=== PATIENT | male | born 1995 | race Caucasian/White ===

== ENCOUNTER 2021-02-01 09:06 | Emergency (ER) | payer MEDICAID ==
[~2021-02-01] VITALS: Ht 175.3 cm; Wt 86.2 kg
[2021-02-01 09:17] VITALS: BP 100/72
--- NOTE | 2021-02-01 09:25 | NUR ---
lab at bedside.
--- NOTE | 2021-02-01 09:28 | NUR ---
25 Y/O M BIBA FOR [address] HOLD [address]ED BY PD. PD STATES THEY FOUND HIM ON THE FLOOR, HAS BEEN HOMELESS FOR 6 MONTHS, PT STATES NOW THAT HE IS SUICIDAL. ASKED PT PLAN FOR SUICIDE AND NUMBER OF ATTEMPTS. PT STATES "I HAVE TRIED EVERYTHING, I TRY ALL THE TIME, BUT I CANT SEEM TO ". PT NON COMPLIANT WITH MEDICATIONS. UPON INSPECTION, PT HAS SUNBURNS ALL OVER BODY, NO VISIBLE SELF HARM LACS ON BODY. PT IS RESTING COMFORTABLY IN A GOWN, BELONGINGS WITH SECURITY, ITEMS TAKEN OUT OF ROOM FOR SAFETY. PMH: BIPOLAR DISORDER ALLERGY: UNABLE TO OBTAIN MED: UNABLE TO OBTAIN
--- NOTE | 2021-02-01 09:30 | NUR ---
LEYDI AND PANCHITO SWABBED AND SENT WITH LAB.
[2021-02-01 09:35] LABS: BASOPHILS % (AUTO) 0.5 % (0.0-2.0); EOSINOPHILS % (AUTO) 0.4 % (0.0-4.0); HEMATOCRIT 40.5 % (36-52); HEMOGLOBIN 14.2 g/dL (12.0-18.0); LYMPHOCYTES # (AUTO) 2.5 K/uL (2.0-11.5); LYMPHOCYTES % (AUTO) 41.6 % (20.5-51.1); MEAN CORPUSCULAR HEMOGLOBIN 32 pg (27-31); MEAN CORPUSCULAR HGB CONC 35 g/dL (33-37); MEAN CORPUSCULAR VOLUME 90.7 fL (80-94); MONOCYTES # (AUTO) 0.6 K/uL (0.8-1.0); NEUTROPHILS # (AUTO) 2.8 K/uL (1.8-7.7); NEUTROPHILS % (AUTO) 47.5 % (42.2-75.2); PLATELET COUNT (AUTO) 243 K/uL (140-450); RED BLOOD CELL COUNT(AUTO) 4.47 MIL/uL (4.20-6.10); RED CELL DISTRIBUTION WIDTH 13.1 % (11.6-13.7)
[2021-02-01 09:52] LABS: ALBUMIN 4.2 g/dL (3.4-5.0); ANION GAP 12.3 (8-16); ASPARTATE AMINOTRANSFERASE 35 U/L (15-37); CARBON DIOXIDE 28.4 mmol/L (21-32); CHLORIDE 100 mmol/L (98-107); CREATININE 0.9 mg/dL (0.6-1.3); GFR ARICAN-AMERICAN 131 mL/min (>90); GLUCOSE 95 mg/dL (74-106); LIPASE 85 U/L (73-393); POTASSIUM 3.7 mmol/L (3.5-5.1); SODIUM SERUM 137 mmol/L (136-145); TOTAL BILIRUBIN 1.5 mg/dL (0.0-1.0); UREA NITROGEN, BLOOD 24 mg/dL (7-18)
[2021-02-01 09:58] LABS: SALICYLATE < 2.8 mg/dL (2.8-20.0)
[2021-02-01 09:59] LABS: ACETAMINOPHEN < 0.5 ug/ml (10-30)
[2021-02-01] MEDS ORDERED: SENN8.6T70 PO (10:17)
[2021-02-01] MEDS ORDERED: LEVO0.124 PO (10:17)
[2021-02-01] MEDS ORDERED: DIVA250T PO (10:17)
[2021-02-01] MEDS ORDERED: ZIPR60CA1 PO (10:17)
[2021-02-01] MEDS ORDERED: OMEP40EC24 PO (10:17)
[2021-02-01] MEDS ORDERED: METF500T PO (10:17)
[2021-02-01] MEDS ORDERED: AMMO12LO TP (10:17)
[2021-02-01] MEDS ORDERED: LACT1TAB35 PO (10:17)
[2021-02-01] MEDS ORDERED: LOSA100T1 PO (10:17)
[2021-02-01] MEDS ORDERED: BENZ-203 PO (10:17)
[2021-02-01] MEDS ORDERED: ASPI-1822 PO (10:17)
[2021-02-01] MEDS ORDERED: LORA10TA19 PO (10:17)
[2021-02-01] MEDS ORDERED: TRAZ-343 PO (10:17)
[2021-02-01] MEDS ORDERED: CITA40TA13 PO (10:17)
[2021-02-01] MEDS ORDERED: ATOR20TA40 PO (10:17)
[2021-02-01] MEDS ORDERED: AMLO10TA PO (10:17)
--- NOTE | 2021-02-01 10:19 | NUR ---
PT ALSO HAS HX OF HEP C
--- NOTE | 2021-02-01 10:23 | NUR ---
Telepsychiatry consultation ordered as requested by Dr. Flores.
--- NOTE | 2021-02-01 10:30 | NUR ---
PT UNABLE TO GIVE URINE AT THIS TIME
--- NOTE | 2021-02-01 11:05 | NUR ---
Report received from Tana ELAINE for continuity of care
--- NOTE | 2021-02-01 11:44 | NUR ---
Pt speaking with telepsych consult
--- NOTE | 2021-02-01 11:54 | NUR ---
Pt eating food provided at this time.
[2021-02-01] MEDS ORDERED: ACET-2619 PO (12:49)
[2021-02-01] MEDS ORDERED: OMEP20TC10 PO (12:49)
[2021-02-01] MEDS ORDERED: ONDA-24 PO (12:49)
--- NOTE | 2021-02-01 12:52 | NUR ---
URINE SAMPLE COLLECTED, SENT TO LAB. HANDED TO CPT JOSEPH
[2021-02-01 12:59] LABS: APPEARANCE,URINE HAZY (CLEAR); BILIRUBIN,URINE 1+ (NEGATIVE); BLOOD, URINE NEGATIVE (NEGATIVE); LEUKOCYTE ESTERASE ,URINE NEGATIVE (NEGATIVE); NITRITE, URINE NEGATIVE (NEGATIVE); UGLUCOSE NEGATIVE (NEGATIVE)
[2021-02-01 13:08] LABS: COLOR,URINE AMBER (YELLOW)
[2021-02-01 13:10] LABS: RBC,URINE 0-5 /HPF (0-5); WBC,URINE 0-5 /HPF (0-5)
[2021-02-01 13:11] LABS: URINE AMORPHOUS URATE 1+ /HPF (None Seen)
[2021-02-01 13:18] LABS: BARBITURATE, URINE NEGATIVE ng/ml (NEG <=200); BENZODIAZEPINE, URINE NEGATIVE ng/mL (NEG <=200); CANNABINOID, URINE POSITIVE ng/mL (NEG <=50); COCAINE, URINE NEGATIVE ng/mL (NEG <=300); OPIATE, URINE NEGATIVE ng/mL (NEG <=2000); PHENCYCLIDINE SCREEN,URINE NEGATIVE ng/mL (NEG <=25)
--- NOTE | 2021-02-01 14:30 | NUR ---
Patient has eyes closed, resting comfortably in bed. Vital Signs within normal limits. Respirations even and unlabored. Chest rise is symmetrical. Will continue to monitor.
--- NOTE | 2021-02-01 16:25 | NUR ---
Patient has eyes closed, resting comfortably in bed. Vital Signs within normal limits. Respirations even and unlabored. Chest rise is symmetrical. Will continue to monitor.
[2021-02-01] MEDS ORDERED: ARIPiprazole 10 MG TAB PO SCH (17:00)
--- NOTE | 2021-02-01 18:11 | NUR ---
Patient has eyes closed, resting comfortably in bed. Vital Signs within normal limits. Respirations even and unlabored. Chest rise is symmetrical. Will continue to monitor.
--- NOTE | 2021-02-01 18:30 | NUR ---
PT EATING DINNER PROVIDED
--- NOTE | 2021-02-01 18:45 | NUR ---
PT AMBULATED TO RESTROOM, ACCOMPANIED WITH 1:1 MONITORING RN
[2021-02-01] MEDS ORDERED: ONDANSETRON 4 MG ODT PO ONE (18:50)
--- NOTE | 2021-02-01 18:52 | NUR ---
PT HAD [address] SARGENT MADE AWARE.
--- NOTE | 2021-02-01 19:13 | NUR ---
Pt report given to EPIFANIO ELAINE. Transfer of care at this time.
--- NOTE | 2021-02-01 19:14 | NUR ---
REPORT RECEIVED FROM JEROMY ELAINE FOR CONTINUITY OF CARE. PT IN BED RESTING. WATER PROVEDED REQUESTED. SAFETY MEASURES IN PLACE, SITTER AT BEDSIDE. WILL CONTINUE TO MONITOR.
[2021-02-01] MEDS ORDERED: DIVALPROEX 500 MG TABEC PO SCH (21:00)
--- NOTE | 2021-02-01 21:20 | NUR ---
MEDS GIVEN ORDERED. VS STABLE AT THIS TIME. PT WITH NO REQUESTS. PT KEPT COMFORTABLE. SAFETY MEASURES IN PLACE. SITTER AT BEDSIDE.
--- NOTE | 2021-02-01 22:29 | NUR ---
PT ASLEEP. VISIBLE CHEST RISE AND FALL NOTED. NO S/SX OF DISTRESS NOTED. SITTER AT BEDSIDE. SAFETY MEASURES IN PLACE. WILL CONTINUE TO MONITOR.
--- NOTE | 2021-02-01 23:59 | NUR ---
Call Center notified ER , at this time we will reschedule for bed placment in the AM at [facility] , Lm ELAINE charge nurse in the ER aware and [facility] green house manager Lisa ELAINE.
--- NOTE | 2021-02-02 | NUR ---
CALLED [facility] AND GAVE REPORT TO GALEN ELAINE. PT WILL BE GOING TO ROOM 218 AND ADMITT[address] MD IS DR. ROTH
--- NOTE | 2021-02-02 00:50 | NUR ---
S/W ELIANA AT [facility] WHO WAS INQURING ABOUT LENGTHY PICKUP ETA FOR PT. PER ELIANA HE WOULD ASSIST WITH ARRANGING TRANSPORTATION FOR AN EARLIER ETA.
--- NOTE | 2021-02-02 01:05 | NUR ---
S/W ELIANA AT [facility] WHO STATED DUE TO EXTENDED ETA OF PICKUP, [facility] IS RESCINDING ACCPETANCE AND MAY HAVE AVAILABLE IN THE MORNING.
--- NOTE | 2021-02-02 01:15 | NUR ---
S/W KIRSTEN, TAILER OUT, AT [facility] WHO STATED PT IS STILL ACCEPTED TO FACILITY BUT WILL BE TAKEN ON AM SHIFT INSTEAD OF TONIGHT.
--- NOTE | 2021-02-02 02:28 | NUR ---
PT EATING SNACKS. NO COMPLAINTS MADE AT THIS TIME.
--- NOTE | 2021-02-02 03:41 | NUR ---
PT ASLEEP. VISIBLE CHEST RISE AND FALL NOTED. NO S/SX OF PAIN OR DISCOMFORT NOTED. PT NOT IN DISTRESS. SAFETY MEASURES IN PLACE. WILL CONTINUE TO MONITOR.
--- NOTE | 2021-02-02 05:30 | NUR ---
PT ASLEEP. NO S/SX OF DISTRESS OR DISCOMFORT. PT KEPT COMFORTABLE. SITTER AT BEDSIDE. WILL CONTINUE TO MONITOR.
--- NOTE | 2021-02-02 07:29 | NUR ---
REPORT GIVEN TO MICHELLE ELAINE FOR CONTINUITY OF CARE
--- NOTE | 2021-02-02 07:35 | NUR ---
RECEIVED BEDSIDE REPORT FROM CORONER TRANSPORT TECHNICIAN NURSE EPIFANIO ELAINE FOR CONTINUOUS OF CARE.
--- NOTE | 2021-02-02 08:41 | NUR ---
Patient transferred to [facility] on 5149 with v/s stable. Ambulance Transport with steady gait. All questions addressed.
[2021-02-02 08:49] VITALS: BP 112/68
[2021-02-02] MEDS ORDERED: buPROPion 75 MG TAB PO SCH (09:00)
== END 2021-02-02 08:41 ==
LOC: MED 09:06
DX: R45.851 Suicidal ideations (principal); Z20.822 Contact with and (suspected) exposure to COVID-19; F32.9 Major depressive disorder, single episode, unspecified; R94.5 Abnormal results of liver function studies; F31.9 Bipolar disorder, unspecified; Z59.0 Homelessness
CPT/HCPCS: 36415; 80053; 80305; 81001; 83690; 85025; 87426; 93005; 99285; G0480; G0482; Q0162; U0003